=== PATIENT | male | born 1945 | race Two or more races ===

== ENCOUNTER → 2016-07-28 | Day surgery (SDC) | payer MEDICARE, BC ==
[~2016-07-28] MED LIST: BUPIVACAINE/EPINEPHRINE 0.25% PF 30 ML VIAL ONE; LACTATED RINGER'S 1000 ML INJ 1,000 ML ONE; ceFAZolin 2 GM PREMIX 50 ML ONE
== END | disposition home or self-care (01) ==
LOC: ESDC 07:21
PROVIDERS: ATTEND Surgery Trauma Surgery
DX: K40.20 Bilateral inguinal hernia, without obstruction or gangrene, not specified as recurrent (principal)
CPT/HCPCS: 99211; G0463; J0690; J7120

== ENCOUNTER → 2016-10-22 | Day surgery (SDC) | payer MEDICARE, BC ==
[~2016-10-22] MED LIST changes: +BUPIVACAINE/EPINEPHRINE 0.25% 50 ML VIAL ONE; -BUPIVACAINE/EPINEPHRINE 0.25% PF 30 ML VIAL ONE; +KETOROLAC TROMETHAMINE 30 MG/ML (IVP) VIAL IV PUSH ONE; +MIDAZOLAM HCL 2 MG/2 ML VIAL ONE; +ONDANSETRON HCL 4 MG/2 ML VIAL IV PUSH ONE; +PROPOFOL 200 MG/20 ML AMP IV ONE
--- NOTE | 2016-10-22 10:50 | TN ---
cc: RHONA JOHNS M.D. DATE OF SURGERY 10/22/2016 PREOPERATIVE DIAGNOSIS Symptomatic bilateral inguinal hernias, right greater than left. POSTOPERATIVE DIAGNOSIS 1. Symptomatic bilateral inguinal hernias, right greater than left. 2. Direct bilateral inguinal hernias. PROCEDURE PERFORMED Laparoscopic bilateral inguinal hernia repair with mesh. SURGEON Rhona Johns MD ANESTHESIA General LMA [employer]PER[employer] SHIVANI Harris ANESTHESIA General LMA COMPLICATIONS None INDICATIONS FOR THE PROCEDURE Mr. Flores is a pleasant 71-year-old gentleman who noticed symptomatic bulges in his groin. They were causing him some discomfort. He was seen, evaluated and found to have bilateral inguinal hernias right greater than left. He was offered elective repair. The risks and benefits of open and laparoscopic repair with mesh was discussed with him and he elected laparoscopic. DETAILS The patient was identified, brought to the operating room, placed supine on the operating room. After adequate general anesthesia achieved with LMA, the anterior abdomen and groins were prepped and draped in standard surgical fashion. The infraumbilical space anesthetized with quarter percent Marcaine. Infraumbilical incision was made. Dissection was carried down through the subcutaneous tissue to the anterior rectus fascia. Anterior rectus fascia was then incised vertically. Rectus muscles were then retracted laterally and the preperitoneal space was entered with blunt finger dissection. Blunt dissecting balloon was inserted and insufflated with 30 pounds of air under direct vision in the preperitoneal space. Dissecting balloon was then removed. Balloon and trocar inserted. Preperitoneal space was insufflated to 11 mmHg using CO2 gas. Next, two 5 mm trocars were placed in the lower midline under direct vision. Attention was first directed to the left side where the pubic tubercle and Crescencio's ligament were identified first. Dissection then proceeded out laterally identifying a direct inguinal hernia defect. Hernia sac was teased off of the underlying tissue and the defect was photographed. Attention was then directed to the cord. Cord structures were carefully inspected. There was no evidence of an indirect peritoneal sac traveling with the cord structures. The peritoneum was dissected back off the cord several centimeters away from the internal ring. A posterior window was then made behind the cord structures. A piece of polypropylene mesh was then inserted with a slit cut for the cord structures. The mesh was placed through the posterior window and then the slit reapproximated using the tacking device. Mesh was then secured medially along Crescencio's ligament and pubic tubercle and superiorly along the posterior abdominal wall fascia. Next, an onlay mesh was placed over the first mesh in order to cover the slit. This was secured medially and laterally. With this, both pieces of mesh had an excellent coverage over the direct and indirect spaces with broad coverage over the direct area where the actual hernia defect was. Attention was now directed to the right side. On the right side, a similar dissection technique was used. On the right side, we also identified direct inguinal hernia. There was no evidence of an indirect inguinal hernia. The peritoneal sac was dissected off the cord structures several centimeters away from the internal ring. The posterior window was then made behind the cord structures. Again, a piece of polypropylene mesh was inserted with a slit cut for the cord structures. The slit was reapproximated using the tacking device. The mesh was then secured medially at Crescencio's ligament, pubic tubercle and superiorly along the posterior abdominal wall fascia using the tacking device. Next, an onlay mesh was placed over the slit and again the mesh was secured medially and laterally in order to cover the slit. With this, the mesh had generous coverage over the indirect and direct spaces. Mesh was photographed in place. Quarter percent Marcaine was injected into the operative sites. All trocars removed under direct vision after watching the peritoneum roll up over the mesh again with excellent coverage of the indirect and direct spaces. The anterior rectus fascia was then repaired with a 0 Vicryl in a [id number] fashion. Skin was closed with 4-0 Vicryl. Please note the a [facility] acute care assistant was medically necessary due to her specialized surgical skills and knowledge of my surgical technique. The patient tolerated the procedure well, was awakened and brought to recovery in stable condition. MD ANANYA Horton/PATRICIA /10:20 AM /10:36 AM
== END | disposition home or self-care (01) ==
LOC: ESDC 07:30
PROVIDERS: ATTEND Surgery Trauma Surgery
DX: K40.20 Bilateral inguinal hernia, without obstruction or gangrene, not specified as recurrent (principal)
CPT/HCPCS: 00840; 49650; C1727; C1781; J0690; J1885; J2250; J2405; J3010; J7120